=== PATIENT | female | born 1955 | race African-American/Black ===

== ENCOUNTER 2017-01-08 09:54 | Inpatient (IN) | payer OTHER ==
[2017-01-08] MEDS ORDERED: IPRATROPIUM/ALBUTEROL 0.5-2.5 MG/3 ML AMPUL NEB ONE (10:14)
--- NOTE | 2017-01-08 10:20 | ER Document Report ---
ED Medical Screen (RME) - General Chief Complaint: Headache Stated Complaint: HEAD PAIN Information source: Patient Notes: 61-year-old female presents with complaints of one week duration mild headache cough body aches generalized weakness shortness of breath. Patient denies any chest pain admits to nausea vomiting or fever I have greeted and performed a rapid initial assessment of this patient. A comprehensive ED assessment and evaluation of the patient, analysis of test results and completion of the medical decision making process will be conducted by additional ED providers. PHYSICAL EXAMINATION: GENERAL: Well-appearing, well-nourished and in no acute distress. HEAD: Atraumatic, normocephalic. EYES: Pupils equal round extraocular movements intact, conjunctiva are normal. ENT: Nares patent NECK: Normal range of motion LUNGS: No respiratory distress Musculoskeletal: Normal range of motion NEUROLOGICAL: Normal speech, normal gait. PSYCH: Normal mood, normal affect. SKIN: Warm, Dry, normal turgor, no rashes or lesions noted. TRAVEL OUTSIDE OF THE [place] IN LAST 30 DAYS: No - Related Data Allergies/Adverse Reactions: No Known Allergies Allergy (Verified 01/08/17 10:05) Past Medical History Renal/ Medical History: Denies: Hx Peritoneal Dialysis Physical Exam - Vital signs Vitals: Temp Pulse Resp BP Pulse Ox 98.1 F 78 20 127/80 H 94 01/08/17 10:06 01/08/17 10:06 01/08/17 10:06 01/08/17 10:06 01/08/17 10:06 Course - Vital Signs Vital signs: Temp Pulse Resp BP Pulse Ox 98.1 F 78 20 127/80 H 94 01/08/17 10:06 01/08/17 10:06 01/08/17 10:06 01/08/17 10:06 01/08/17 10:06
[2017-01-08 11:10] LABS: APPEARANCE,URINE CLEAR; BILIRUBIN,URINE NEGATIVE (NEGATIVE); GLUCOSE, URINE NEGATIVE (NEGATIVE); KETONES,URINE NEGATIVE (NEGATIVE); LEUKOCYTE ESTERASE,URINE NEGATIVE (NEGATIVE); NITRITE,URINE NEGATIVE (NEGATIVE); PROTEIN,URINE NEGATIVE (NEGATIVE); URINE SPECIFIC GRAVITY 1.006; UROBILINOGEN,URINE NEGATIVE mg/dL (<2.0)
[2017-01-08 11:13] LABS: ABSOLUTE EOSINOPHILS # (AUTO) 0.2 10^3/uL (0.0-0.6); ABSOLUTE LYMPHOCYTES (AUTO) 1.9 10^3/uL (0.5-4.7); ABSOLUTE MONOCYTES (AUTO) 0.7 10^3/uL (0.1-1.4); BASOPHILS % (AUTO) 0.4 % (0-2); EOSINOPHILS % (AUTO) 3.7 % (0-6); HEMATOCRIT 42.8 % (36.0-47.0); HEMOGLOBIN 14.6 g/dL (12.0-15.5); MEAN CORPUSCULAR HEMOGLOBIN 27.6 pg (27.0-33.4); MEAN CORPUSCULAR HGB CONC 34.1 g/dL (32.0-36.0); MEAN CORPUSCULAR VOLUME 81 fl (80-97); MONOCYTES % (AUTO) 12.5 % (3-13); RED BLOOD COUNT 5.29 10^6/uL (3.72-5.28); RED CELL DISTRIBUTION WIDTH 12.7 % (11.5-14.0); SEGMENTED NEUTROPHILS % (AUTO) 51.4 % (42-78); WHITE BLOOD COUNT 5.9 10^3/uL (4.0-10.5)
[2017-01-08 11:25] LABS: ALANINE AMINOTRANSFERASE 37 U/L (9-52); ALKALINE PHOSPHATASE 90 U/L (38-126); ASPARTATE AMINO TRANSFERASE 50 U/L (14-36); BILIRUBIN,DIRECT 0.3 mg/dL (0.0-0.4); BILIRUBIN,TOTAL 0.6 mg/dL (0.2-1.3); BLOOD UREA NITROGEN 12 mg/dL (7-20); CARBON DIOXIDE 30 mmol/L (22-30); CHLORIDE 65 mmol/L (98-107); CREATINE KINASE 887 U/L (30-135); CREATININE RESULT 0.73 mg/dL (0.52-1.25); GLUCOSE 126 mg/dL (75-110); POTASSIUM 4.5 mmol/L (3.6-5.0); TOTAL PROTEIN 8.8 g/dL (6.3-8.2)
--- NOTE | 2017-01-08 11:30 | ER Document Report ---
ED General - General Chief Complaint: Headache Stated Complaint: HEAD PAIN Notes: patient is a 61 year old female who presents to the ED today with her son complaining of headache, cough and body aches. Onset was one week ago. admits to subjective fever and chills, nausea and vomiting without abdominal pain, nonproductive cough, body aches, weakness and SOB and HAND. Denies diarrhea or constipation. home medications: something for HTN that she receives from [facility], son is not aware of name PCP: [facility] PMH: HTN PSH: denies SH: denies tobacco, etoh or IVDU NKDA TRAVEL OUTSIDE OF THE [place] IN LAST 30 DAYS: No - Related Data Allergies/Adverse Reactions: No Known Allergies Allergy (Verified 01/08/17 10:20) Past Medical History - General Information source: Patient - Social History Smoking Status: Never Smoker Family History: Reviewed & Not Pertinent Patient has suicidal ideation: No Patient has homicidal ideation: No Renal/ Medical History: Denies: Hx Peritoneal Dialysis Review of Systems - Review of Systems Constitutional: See HPI Cardiovascular: No symptoms reported Respiratory: See HPI Gastrointestinal: See HPI Neurological/Psychological: See HPI -: Yes All other systems reviewed and negative Physical Exam - Vital signs Vitals: Temp Pulse Resp BP Pulse Ox 98.1 F 78 20 127/80 H 94 01/08/17 10:06 01/08/17 10:06 01/08/17 10:06 01/08/17 10:06 01/08/17 10:06 - Notes Notes: PHYSICAL EXAM GENERAL: Alert, interacts well. HEAD: Normocephalic, atraumatic. EYES: Pupils equal, round, and reactive to light. Extraocular movements intact. ENT: Sinuses nontender. Oral mucosa moist, tongue midline. NECK: Full range of motion. Supple. Trachea midline. LUNGS: Generalized decreased air movement bilaterally, no wheezes, rales, or rhonchi. No respiratory distress. HEART: Regular rate and rhythm. No murmurs, gallops, or rubs. ABDOMEN: Soft, nondistended, nontender. No guarding, rebound, or rigidity.. Bowel sounds present in all 4 quadrants. EXTREMITIES: Moves all 4 extremities spontaneously. No edema, radial and dorsalis pedis pulses 2/4 bilaterally. No cyanosis. NEUROLOGICAL: Alert and oriented x4. Normal speech. PSYCH: Normal affect, normal mood. SKIN: Warm, dry, normal turgor. No rashes or lesions noted. Course - Re-evaluation Re-evalutation: 01/08/17 12:13 Patient is a 7-year-old female who is hemodynamically stable, no acute distress and afebrile. Chemistry reveals hyponatremia at 111.1 which is new given last Na was 144 in june. No evidence of renal insufficiency or failure. UA nl. Will admit to ICU under Dr. Arriaza, IVF initiated Per [facility] protocol and guidelines, this case was discussed with supervising physician Dr. Mason Archibald prior to admission - Vital Signs Vital signs: Temp Pulse Resp BP Pulse Ox 97.8 F 77 16 107/70 98 01/08/17 16:00 01/08/17 18:00 01/08/17 18:00 01/08/17 18:00 01/08/17 18:00 - Laboratory Result Diagrams: 01/08/17 10:30 01/08/17 10:30 Laboratory results interpreted by me: 01/08/17 01/08/17 01/08/17 10:30 10:30 10:30 RBC 5.29 H Sodium 111.1 L* Chloride 65 L Glucose 126 H AST 50 H Creatine Kinase 887 H CK-MB (CK-2) 4.84 H Total Protein 8.8 H Urine Osmolality Urine Ascorbic Acid 01/08/17 01/08/17 10:45 10:45 RBC Sodium Chloride Glucose AST Creatine Kinase CK-MB (CK-2) Total Protein Urine Osmolality 273 L Urine Ascorbic Acid 40 H - Diagnostic Test Radiology reviewed: Image reviewed, Reports reviewed - Consults Dr. Arriaza Reason for consultation: 01/08/17 18:30 hospital admission for hyponatremia Consulted provider: will see as inpatient Procedures - Additional Procedures IV insertion Additional Procedures: IV insertion - right AC Critical Care Note - Critical Care Note Total time excluding time spent on procedures (mins): 34 Comments: Critical care time for consultation to hopitalist for admission, management of hyponatremia and establishing IV access Discharge - Discharge Clinical Impression: Hyponatremia Admitting Provider: Hospitalist - Dr. Arriaza Unit Admitted: ICU
[2017-01-08 11:36] LABS: CREATINE KINASE MB 4.84 ng/mL (<4.55)
[2017-01-08 11:38] LABS: ANION GAP 16 (5-19); TROPONIN I < 0.012 ng/mL
[2017-01-08 11:39] LABS: SODIUM 111.1 mmol/L (137-145)
[2017-01-08] MEDS ORDERED: NORMAL SALINE 1000 ML 1,000 ML IV PRN (11:43)
[2017-01-08] MEDS ORDERED: ONDANSETRON HCL INJ/PF 4 MG/2 ML SDV IV PRN (12:26)
[2017-01-08] MEDS ORDERED: SODIUM CHLORIDE 3% 500 ML IV ONE (13:00)
--- NOTE | 2017-01-08 13:07 | PDOC H&P ---
History of Present Illness Admission Date/PCP: 01/08/17 12:07 [facility] Patient complains of: generalised weakness and persistent vomiting History of Present Illness: DANIEL PALMA is a 61 year old female known hypertensive treated at the [facility] who emigrated from [facility] 1 year ago She presented to the ED with vomiting for the past week without abdominal pain She was diagnosed of severe hyponatremia with a serum Na of 111 She was subsequently admitted to the ICU under Hospitalist Service for further evaluation and care Past Medical History Cardiac Medical History: Reports: Hypertension Social History Information Source: Relative - son Lives with: Family Smoking Status: Never Smoker Frequency of Alcohol Use: None Hx Recreational Drug Use: No - Advance Directive Resuscitation Status: Full Code Surrogate healthcare decision maker:: eun Weaver Family History Family History: Reviewed & Not Pertinent Parental Family History Reviewed: Yes Children Family History Reviewed: Yes Sibling(s) Family History Reviewed.: Yes Medication/Allergy Allergies/Adverse Reactions: No Known Allergies Allergy (Verified 01/08/17 10:20) Review of Systems Constitutional: ABSENT: chills, fever(s), headache(s), weight gain, weight loss Eyes: ABSENT: visual disturbances Ears: ABSENT: hearing changes Cardiovascular: ABSENT: chest pain, dyspnea on exertion, edema, orthropnea, palpitations Respiratory: ABSENT: cough, hemoptysis Gastrointestinal: PRESENT: as per HPI, nausea, vomiting. ABSENT: abdominal pain , constipation, diarrhea, hematemesis, hematochezia Genitourinary: ABSENT: dysuria, hematuria Musculoskeletal: ABSENT: joint swelling Integumentary: ABSENT: rash, wounds Neurological: ABSENT: abnormal gait, abnormal speech, confusion, dizziness, focal weakness, syncope Psychiatric: ABSENT: anxiety, depression, homidical ideation, suicidal ideation Endocrine: ABSENT: cold intolerance, heat intolerance, polydipsia, polyuria Hematologic/Lymphatic: ABSENT: easy bleeding, easy bruising Physical Exam Vital Signs: Temp Pulse Resp BP Pulse Ox 98.1 F 78 20 127/80 H 94 01/08/17 10:06 01/08/17 10:06 01/08/17 10:06 01/08/17 10:06 01/08/17 10:06 General appearance: PRESENT: no acute distress, well-developed, well-nourished Head exam: PRESENT: atraumatic, normocephalic Eye exam: PRESENT: conjunctiva pink, EOMI, PERRLA. ABSENT: scleral icterus Ear exam: PRESENT: normal external ear exam Mouth exam: PRESENT: moist, tongue midline Neck exam: ABSENT: carotid bruit, JVD, lymphadenopathy, thyromegaly Respiratory exam: PRESENT: clear to auscultation christian. ABSENT: rales, rhonchi, wheezes Cardiovascular exam: PRESENT: RRR. ABSENT: diastolic murmur, rubs, systolic murmur Pulses: PRESENT: normal dorsalis pedis pul Vascular exam: PRESENT: normal capillary refill GI/Abdominal exam: PRESENT: normal bowel sounds, soft. ABSENT: distended, guarding, mass, organolmegaly, rebound, tenderness Rectal exam: PRESENT: deferred Extremities exam: PRESENT: full ROM. ABSENT: calf tenderness, clubbing, pedal edema Neurological exam: PRESENT: alert, awake, oriented to person, oriented to place , oriented to time, oriented to situation, CN II-XII grossly intact. ABSENT: motor sensory deficit Psychiatric exam: PRESENT: appropriate affect, normal mood. ABSENT: homicidal ideation, suicidal ideation Skin exam: PRESENT: dry, intact, warm. ABSENT: cyanosis, rash Results Laboratory Results: 01/08/17 10:30 01/08/17 10:30 MCV 81 fl (80-97) 01/08/17 10:30 MCH 27.6 pg (27.0-33.4) 01/08/17 10:30 MCHC 34.1 g/dL (32.0-36.0) 01/08/17 10:30 RDW 12.7 % (11.5-14.0) 01/08/17 10:30 Seg Neutrophils % 51.4 % (42-78) 01/08/17 10:30 Lymphocytes % 32.0 % (13-45) 01/08/17 10:30 Monocytes % 12.5 % (3-13) 01/08/17 10:30 Eosinophils % 3.7 % (0-6) 01/08/17 10:30 Basophils % 0.4 % (0-2) 01/08/17 10:30 Absolute Neutrophils 3.0 10^3/uL (1.7-8.2) 01/08/17 10:30 Absolute Lymphocytes 1.9 10^3/uL (0.5-4.7) 01/08/17 10:30 Absolute Monocytes 0.7 10^3/uL (0.1-1.4) 01/08/17 10:30 Absolute Eosinophils 0.2 10^3/uL (0.0-0.6) 01/08/17 10:30 Absolute Basophils 0.0 10^3/uL (0.0-0.2) 01/08/17 10:30 Chloride 65 mmol/L (98-107) L 01/08/17 10:30 Carbon Dioxide 30 mmol/L (22-30) 01/08/17 10:30 Anion Gap 16 (5-19) 01/08/17 10:30 Est GFR ( Amer) > 60 (>60) 01/08/17 10:30 Est GFR (Non-Af Amer) > 60 (>60) 01/08/17 10:30 Glucose 126 mg/dL (75-110) H 01/08/17 10:30 Calcium 10.0 mg/dL (8.4-10.2) 01/08/17 10:30 Total Bilirubin 0.6 mg/dL (0.2-1.3) 01/08/17 10:30 AST 50 U/L (14-36) H 01/08/17 10:30 ALT 37 U/L (9-52) 01/08/17 10:30 Alkaline Phosphatase 90 U/L (38-126) 01/08/17 10:30 Total Protein 8.8 g/dL (6.3-8.2) H 01/08/17 10:30 Albumin 5.0 g/dL (3.5-5.0) 01/08/17 10:30 Urine Color STRAW 01/08/17 10:45 Urine Appearance CLEAR 01/08/17 10:45 Urine pH 8.0 (5.0-9.0) 01/08/17 10:45 Ur Specific [place] 1.006 01/08/17 10:45 Urine Protein NEGATIVE mg/dL (NEGATIVE) 01/08/17 10:45 Urine Glucose (UA) NEGATIVE mg/dL (NEGATIVE) 01/08/17 10:45 Urine Ketones NEGATIVE mg/dL (NEGATIVE) 01/08/17 10:45 Urine Blood NEGATIVE (NEGATIVE) 01/08/17 10:45 Urine Nitrite NEGATIVE (NEGATIVE) 01/08/17 10:45 Ur Leukocyte Esterase NEGATIVE (NEGATIVE) 01/08/17 10:45 Urine WBC (Auto) 0 /HPF 01/08/17 10:45 01/08/17 01/08/17 10:30 10:30 Creatine Kinase 887 H CK-MB (CK-2) 4.84 H Troponin I < 0.012 Impressions: Chest X-Ray 01/08/17 10:14 IMPRESSION: NO SIGNIFICANT RADIOGRAPHIC FINDING IN THE CHEST. Head CT 01/08/17 10:19 IMPRESSION: 1. Left maxillary sinusitis. Acute infection not excluded. 2. Suspect small vessel disease, chronic change otherwise. Assessment & Plan - Diagnosis (1) Rhabdomyolysis Qualifiers: Rhabdomyolysis type: non-traumatic Qualified Code(s): M62.82 - Rhabdomyolysis Is this a current diagnosis for this admission?: YesPlan: follow up CPK hydrate Patient has normal renal function (2) Hypertension Qualifiers: Hypertension type: essential hypertension Qualified Code(s): I10 - Essential (primary) hypertension Is this a current diagnosis for this admission?: YesPlan: hold meds for now (3) Hyponatremia Is this a current diagnosis for this admission?: YesPlan: very low Na 111 increase Na no more than 8mEq/24 hours seizure precautions Patient is asymptomatic likely acute on chronic treat with 0.9 NS and fluid restriction follow up q4h - Time Time Spent: 50 to 70 Minutes - Inpatient Certification Based on my medical assessment, after consideration of the patient's comorbidities, presenting symptoms, or acuity I expect that the services needed warrant INPATIENT care.: Yes I certify that my determination is in accordance with my understanding of Medicare's requirements for reasonable and necessary INPATIENT services [42 CFR 412.3e].: Yes Medical Necessity: Need For IV Fluids, Need For Continuous Telemetry Monitoring
[2017-01-08] MEDS ORDERED: ENOXAPARIN SODIUM INJ 40 MG/0.4 ML DISP.SYRIN SUBCUT ONE (13:30)
[2017-01-08] MEDS: NORMAL SALINE 1000 ML 1,000 ML IV PRN ×2 (13:59→21:43)
[2017-01-08 18:04] LABS: THYROID STIMULATING HORMONE 0.31 uIU/mL (0.47-4.68)
[2017-01-08 18:38] LABS: ALANINE AMINOTRANSFERASE 33 U/L (9-52); ALBUMIN 4.4 g/dL (3.5-5.0); ALKALINE PHOSPHATASE 76 U/L (38-126); ANION GAP 13 (5-19); ASPARTATE AMINO TRANSFERASE 43 U/L (14-36); BILIRUBIN,DIRECT 0.3 mg/dL (0.0-0.4); BILIRUBIN,TOTAL 0.5 mg/dL (0.2-1.3); BLOOD UREA NITROGEN 15 mg/dL (7-20); CALCIUM 9.9 mg/dL (8.4-10.2); CARBON DIOXIDE 28 mmol/L (22-30); CHLORIDE 74 mmol/L (98-107); GLUCOSE 139 mg/dL (75-110); POTASSIUM 4.4 mmol/L (3.6-5.0); TOTAL PROTEIN 7.4 g/dL (6.3-8.2)
[2017-01-08 18:44] LABS: SODIUM 114.8 mmol/L (137-145)
[2017-01-08] MEDS ORDERED: FENTANYL CITRATE INJ/PF 100 MCG/2 ML AMPUL ONE (19:03)
[2017-01-08] MEDS ORDERED: MIDAZOLAM 2 MG/2 ML INJ ONE (19:03)
[2017-01-08] MEDS ORDERED: MIDAZOLAM 2 MG/2 ML INJ IV ONE (19:15)
[2017-01-08] MEDS ORDERED: FENTANYL CITRATE INJ/PF 100 MCG/2 ML AMPUL IV ONE ×2 (19:15→19:30)
[2017-01-08] MEDS ORDERED: LIDOCAINE 0.5% INJ-PF (5 MG/ML) 50 ML SDV ONE (19:36)
[2017-01-08] MEDS ORDERED: LIDOCAINE 1% INJ-PF (10 MG/ML) 30 ML SDV ONE (19:37)
--- NOTE | 2017-01-08 21:03 | OPERATIVE REPORT E ---
Operative Report NAME: DANIEL PALMA : 1955 AGE: 61Y DATE OF SURGERY: 01/08/2017 ROOM: [facility] PREOPERATIVE DIAGNOSIS: Poor vein for IV access and severe hyponatremia. POSTOPERATIVE DIAGNOSIS: Poor vein for IV access and severe hyponatremia. OPERATION: Placement of central venous triple-lumen catheter. SURGEON: ELBA BROWN M.D. ANESTHESIA: Local MAC. INDICATION: This is a 61-year-old female admitted for severe hyponatremia with a sodium of about 110. She needed IV access because of poor veins. DESCRIPTION OF PROCEDURE: Patient was placed in a slight Trendelenburg position and the right neck and chest prepped and draped in the usual sterile fashion. With the use of the ultrasound, the right internal jugular vein was then punctured, but unfortunately I was not able to thread the guidewire more than 15 cm. The wire subsequently pulled out and further ultrasound of internal jugular vein revealed that there might be some clots in the vein itself. Because of this, the procedure was converted to cannulation of right subclavian vein. Local anesthesia was then infiltrated on the right infraclavicular area and the right subclavian vein punctured and guidewire this time passed through quite easily through the needle. The needle was subsequently pulled out and the puncture site enlarged with a #11 blade. Dilator was then passed through the guidewire and pulled out. The triple-lumen catheter was inserted through the guidewire towards the area of the superior vena cava. About 17 cm of the catheter was threaded through. The guidewire subsequently pulled out and the 3 ports and aspirated blood easily and irrigated with saline easily. Next the catheter was anchored to the skin with 3-0 silk. A Biopatch was then placed at the entry site and subsequently dressed with transparent dressing. A chest x-ray will be obtained. The patient tolerated the procedure well. DICTATING PHYSICIAN: ELBA BROWN M.D. [id number] PHY#: [id number] 2018 ID: [id number] JOB#: [id number] ACCT: [id number] cc:ELBA BROWN M.D. >
[2017-01-08] MEDS: PANTOPRAZOLE SODIUM 40 MG VIAL IV SCH (21:43)
[2017-01-08 22:25] LABS: ANION GAP 11 (5-19); BLOOD UREA NITROGEN 12 mg/dL (7-20); CALCIUM 8.8 mg/dL (8.4-10.2); CARBON DIOXIDE 31 mmol/L (22-30); CHLORIDE 76 mmol/L (98-107); CREATININE RESULT 0.68 mg/dL (0.52-1.25); GLUCOSE 89 mg/dL (75-110); POTASSIUM 3.9 mmol/L (3.6-5.0)
[2017-01-08 22:31] LABS: SODIUM 117.5 mmol/L (137-145)
[2017-01-09] MEDS: KETOROLAC TROMETHAMINE INJ/PF 30 MG/1 ML SDV IV PRN (02:24)
[2017-01-09 02:35] LABS: BLOOD UREA NITROGEN 12 mg/dL (7-20); CALCIUM 9.1 mg/dL (8.4-10.2); CARBON DIOXIDE 31 mmol/L (22-30); CHLORIDE 77 mmol/L (98-107); CREATININE RESULT 0.62 mg/dL (0.52-1.25); GLUCOSE 98 mg/dL (75-110); POTASSIUM 3.9 mmol/L (3.6-5.0)
[2017-01-09 02:37] LABS: ANION GAP 11 (5-19)
[2017-01-09 02:41] LABS: SODIUM 119.3 mmol/L (137-145)
[2017-01-09 06:14] LABS: ABSOLUTE BASOPHILS # (AUTO) 0.1 10^3/uL (0.0-0.2); ABSOLUTE EOSINOPHILS # (AUTO) 0.1 10^3/uL (0.0-0.6); ABSOLUTE LYMPHOCYTES (AUTO) 1.8 10^3/uL (0.5-4.7); ABSOLUTE NEUT (AUTO) 4.1 10^3/uL (1.7-8.2); BASOPHILS % (AUTO) 0.7 % (0-2); HEMATOCRIT 36.8 % (36.0-47.0); HEMOGLOBIN 12.7 g/dL (12.0-15.5); HGB HCT DIFFERENCE 1.3; MEAN CORPUSCULAR HEMOGLOBIN 28.1 pg (27.0-33.4); MEAN CORPUSCULAR HGB CONC 34.6 g/dL (32.0-36.0); MEAN CORPUSCULAR VOLUME 81 fl (80-97); MONOCYTES % (AUTO) 13.8 % (3-13); RED BLOOD COUNT 4.53 10^6/uL (3.72-5.28); RED CELL DISTRIBUTION WIDTH 12.7 % (11.5-14.0); SEGMENTED NEUTROPHILS % (AUTO) 57.5 % (42-78); WHITE BLOOD COUNT 7.1 10^3/uL (4.0-10.5)
[2017-01-09] MEDS: NORMAL SALINE 1000 ML 1,000 ML IV PRN (06:29)
[2017-01-09 06:31] LABS: ALANINE AMINOTRANSFERASE 35 U/L (9-52); ALBUMIN 3.8 g/dL (3.5-5.0); ALKALINE PHOSPHATASE 69 U/L (38-126); ANION GAP 10 (5-19); ASPARTATE AMINO TRANSFERASE 32 U/L (14-36); BILIRUBIN,DIRECT 0.2 mg/dL (0.0-0.4); BILIRUBIN,TOTAL 0.5 mg/dL (0.2-1.3); BLOOD UREA NITROGEN 11 mg/dL (7-20); CALCIUM 8.9 mg/dL (8.4-10.2); CARBON DIOXIDE 31 mmol/L (22-30); CHLORIDE 81 mmol/L (98-107); CHOLESTEROL 150.13 mg/dL (0-200); CREATINE KINASE 514 U/L (30-135); CREATININE RESULT 0.68 mg/dL (0.52-1.25); Direct HDL 60 mg/dL (>40); GLUCOSE 91 mg/dL (75-110); POTASSIUM 3.9 mmol/L (3.6-5.0); TOTAL PROTEIN 6.5 g/dL (6.3-8.2); TRIGLYCERIDES 55 mg/dL (<150)
[2017-01-09 06:42] LABS: DIRECT LDL 63 mg/dL (<100)
[2017-01-09] MEDS: ENOXAPARIN SODIUM INJ 40 MG/0.4 ML DISP.SYRIN SUBCUT SCH (08:28)
[2017-01-09] MEDS ORDERED: FUROSEMIDE INJ/PF 20 MG/2 ML SDV IV ONE (08:30)
--- NOTE | 2017-01-09 10:05 | EKG REPORT ---
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
[2017-01-09] MEDS: PANTOPRAZOLE SODIUM 40 MG VIAL IV SCH ×2 (11:48→21:49)
[2017-01-09 12:42] LABS: ANION GAP 11 (5-19); BLOOD UREA NITROGEN 14 mg/dL (7-20); CALCIUM 9.3 mg/dL (8.4-10.2); CARBON DIOXIDE 30 mmol/L (22-30); CHLORIDE 82 mmol/L (98-107); CREATININE RESULT 0.68 mg/dL (0.52-1.25); GLUCOSE 152 mg/dL (75-110); POTASSIUM 3.6 mmol/L (3.6-5.0); SODIUM 123.2 mmol/L (137-145)
--- NOTE | 2017-01-09 15:44 | PDOC PROGRESS REPORT ---
Subjective Progress Note for:: 01/09/17 Subjective:: Patient is feeling well she has no complaints Sodium is normalizing Physical Exam Vital Signs: Temp Pulse Resp BP Pulse Ox 98.1 F 76 17 114/71 100 01/09/17 08:30 01/09/17 08:30 01/09/17 08:30 01/09/17 08:30 01/09/17 08:30 Intake & Output 01/08/17 01/09/17 01/10/17 00:59 00:59 00:59 Intake Total 707 1892 Output Total 2600 1950 Balance -1893 -58 Weight 83.4 kg General appearance: PRESENT: no acute distress, well-developed, well-nourished Head exam: PRESENT: atraumatic, normocephalic Eye exam: PRESENT: conjunctiva pink, EOMI, PERRLA. ABSENT: scleral icterus Ear exam: PRESENT: normal external ear exam Mouth exam: PRESENT: moist, tongue midline Neck exam: ABSENT: carotid bruit, JVD, lymphadenopathy, thyromegaly Respiratory exam: PRESENT: clear to auscultation christian. ABSENT: rales, rhonchi, wheezes Cardiovascular exam: PRESENT: RRR. ABSENT: diastolic murmur, rubs, systolic murmur Pulses: PRESENT: normal dorsalis pedis pul Vascular exam: PRESENT: normal capillary refill GI/Abdominal exam: PRESENT: normal bowel sounds, soft. ABSENT: distended, guarding, mass, organolmegaly, rebound, tenderness Rectal exam: PRESENT: deferred Extremities exam: PRESENT: full ROM. ABSENT: calf tenderness, clubbing, pedal edema Neurological exam: PRESENT: alert, awake, oriented to person, oriented to place , oriented to time, oriented to situation, CN II-XII grossly intact. ABSENT: motor sensory deficit Psychiatric exam: PRESENT: appropriate affect, normal mood. ABSENT: homicidal ideation, suicidal ideation Skin exam: PRESENT: dry, intact, warm. ABSENT: cyanosis, rash Results Laboratory Results: 01/09/17 06:00 01/08/17 01/08/17 01/08/17 17:00 17:00 18:10 WBC RBC Hgb Hct MCV MCH MCHC RDW Plt Count Seg Neutrophils % Lymphocytes % Monocytes % Eosinophils % Basophils % Absolute Neutrophils Absolute Lymphocytes Absolute Monocytes Absolute Eosinophils Absolute Basophils Sodium 114.8 L* Potassium 4.4 Chloride 74 L Carbon Dioxide 28 Anion Gap 13 BUN 15 Creatinine 0.70 Est GFR ( Amer) > 60 Est GFR (Non-Af Amer) > 60 Glucose 139 H Serum Osmolality 237 L Calcium 9.9 Total Bilirubin 0.5 AST 43 H ALT 33 Alkaline Phosphatase 76 Total Protein 7.4 Albumin 4.4 Triglycerides Cholesterol LDL Cholesterol Direct VLDL Cholesterol HDL Cholesterol TSH 0.31 L Free T4 1.65 01/08/17 01/09/17 01/09/17 21:52 02:00 06:00 WBC RBC Hgb Hct MCV MCH MCHC RDW Plt Count Seg Neutrophils % Lymphocytes % Monocytes % Eosinophils % Basophils % Absolute Neutrophils Absolute Lymphocytes Absolute Monocytes Absolute Eosinophils Absolute Basophils Sodium 117.5 L* 119.3 L* 122.0 L Potassium 3.9 3.9 3.9 Chloride 76 L 77 L 81 L Carbon Dioxide 31 H 31 H 31 H Anion Gap 11 11 10 BUN 12 12 11 Creatinine 0.68 0.62 0.68 Est GFR ( Amer) > 60 > 60 > 60 Est GFR (Non-Af Amer) > 60 > 60 > 60 Glucose 89 98 91 Serum Osmolality Calcium 8.8 9.1 8.9 Total Bilirubin 0.5 AST 32 ALT 35 Alkaline Phosphatase 69 Total Protein 6.5 Albumin 3.8 Triglycerides 55 Cholesterol 150.13 LDL Cholesterol Direct 63 VLDL Cholesterol 11.0 HDL Cholesterol 60 TSH Free T4 01/09/17 01/09/17 06:00 11:45 WBC 7.1 RBC 4.53 Hgb 12.7 Hct 36.8 MCV 81 MCH 28.1 MCHC 34.6 RDW 12.7 Plt Count 259 Seg Neutrophils % 57.5 Lymphocytes % 26.0 Monocytes % 13.8 H Eosinophils % 2.0 Basophils % 0.7 Absolute Neutrophils 4.1 Absolute Lymphocytes 1.8 Absolute Monocytes 1.0 Absolute Eosinophils 0.1 Absolute Basophils 0.1 Sodium 123.2 L Potassium 3.6 Chloride 82 L Carbon Dioxide 30 Anion Gap 11 BUN 14 Creatinine 0.68 Est GFR ( Amer) > 60 Est GFR (Non-Af Amer) > 60 Glucose 152 H Serum Osmolality Calcium 9.3 Total Bilirubin AST ALT Alkaline Phosphatase Total Protein Albumin Triglycerides Cholesterol LDL Cholesterol Direct VLDL Cholesterol HDL Cholesterol TSH Free T4 01/09/17 01/09/17 06:00 09:57 Creatine Kinase 514 H NT-Pro-B Natriuret Pep 37 Impressions: Chest X-Ray 01/08/17 10:14 IMPRESSION: NO SIGNIFICANT RADIOGRAPHIC FINDING IN THE CHEST. Head CT 01/08/17 10:19 IMPRESSION: 1. Left maxillary sinusitis. Acute infection not excluded. 2. Suspect small vessel disease, chronic change otherwise. Assessment & Plan - Diagnosis (1) Rhabdomyolysis Qualifiers: Rhabdomyolysis type: non-traumatic Qualified Code(s): M62.82 - Rhabdomyolysis Is this a current diagnosis for this admission?: Yes (2) Hypertension Qualifiers: Hypertension type: essential hypertension Qualified Code(s): I10 - Essential (primary) hypertension Is this a current diagnosis for this admission?: Yes (3) Hyponatremia Is this a current diagnosis for this admission?: YesPlan: Improving continue fluid restriction continue saline infusion - Time Time Spent with patient: We may transfer patient to medical unit with telemetry Follow-up BMP patient may be discharged later tomorrow Time Spent with patient: 25-34 minutes
[2017-01-09 15:48] LABS: ANION GAP 12 (5-19); BLOOD UREA NITROGEN 19 mg/dL (7-20); CALCIUM 9.1 mg/dL (8.4-10.2); CARBON DIOXIDE 29 mmol/L (22-30); CHLORIDE 82 mmol/L (98-107); CREATININE RESULT 0.88 mg/dL (0.52-1.25); GLUCOSE 158 mg/dL (75-110); SODIUM 122.9 mmol/L (137-145)
[2017-01-09 18:59] LABS: ANION GAP 12 (5-19); BLOOD UREA NITROGEN 23 mg/dL (7-20); CALCIUM 9.3 mg/dL (8.4-10.2); CARBON DIOXIDE 31 mmol/L (22-30); CHLORIDE 81 mmol/L (98-107); GLUCOSE 116 mg/dL (75-110); POTASSIUM 4.1 mmol/L (3.6-5.0); SODIUM 123.6 mmol/L (137-145)
[2017-01-09 22:18] LABS: ANION GAP 11 (5-19); BLOOD UREA NITROGEN 24 mg/dL (7-20); CALCIUM 8.9 mg/dL (8.4-10.2); CARBON DIOXIDE 30 mmol/L (22-30); CHLORIDE 82 mmol/L (98-107); CREATININE RESULT 0.97 mg/dL (0.52-1.25); GLUCOSE 117 mg/dL (75-110); POTASSIUM 3.8 mmol/L (3.6-5.0); SODIUM 123.2 mmol/L (137-145)
[2017-01-10] MEDS: KETOROLAC TROMETHAMINE INJ/PF 30 MG/1 ML SDV IV PRN ×2 (03:06→09:21)
[2017-01-10 04:03] LABS: ANION GAP 13 (5-19); BLOOD UREA NITROGEN 21 mg/dL (7-20); CALCIUM 9.2 mg/dL (8.4-10.2); CARBON DIOXIDE 31 mmol/L (22-30); CHLORIDE 82 mmol/L (98-107); CREATININE RESULT 0.72 mg/dL (0.52-1.25); GLUCOSE 134 mg/dL (75-110); POTASSIUM 3.7 mmol/L (3.6-5.0); SODIUM 125.6 mmol/L (137-145)
[2017-01-10] MEDS ORDERED: LORAZEPAM INJ 2 MG/1 ML VIAL ONE (05:57)
[2017-01-10] MEDS ORDERED: LORAZEPAM INJ 2 MG/1 ML VIAL IV ONE (06:15)
--- NOTE | 2017-01-10 08:05 | EKG REPORT ---
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 : Confirmed by: Dylan Iraheta MD 10-Jan-2017 08:05:17
[2017-01-10] MEDS: ENOXAPARIN SODIUM INJ 40 MG/0.4 ML DISP.SYRIN SUBCUT SCH (09:22)
[2017-01-10] MEDS: PANTOPRAZOLE SODIUM 40 MG VIAL IV SCH ×2 (09:22→21:11)
[2017-01-10 15:20] LABS: ANION GAP 11 (5-19); BLOOD UREA NITROGEN 19 mg/dL (7-20); CALCIUM 8.9 mg/dL (8.4-10.2); CARBON DIOXIDE 31 mmol/L (22-30); CHLORIDE 83 mmol/L (98-107); CREATININE RESULT 0.58 mg/dL (0.52-1.25); GLUCOSE 162 mg/dL (75-110); POTASSIUM 3.9 mmol/L (3.6-5.0); SODIUM 125.1 mmol/L (137-145)
[2017-01-10] MEDS ORDERED: NORMAL SALINE 1000 ML 1,000 ML IV PRN ×2 (15:39→15:53)
--- NOTE | 2017-01-10 17:17 | PDOC PROGRESS REPORT ---
Subjective Progress Note for:: 01/10/17 Subjective:: Patient is asymptomatic now She was quite agitated last night and wishes to go home She has had no seizure activity nausea vomiting diarrhea The by mouth intake is good Physical Exam Vital Signs: Temp Pulse Resp BP Pulse Ox 97.9 F 96 16 155/83 H 100 01/10/17 10:00 01/10/17 10:00 01/10/17 10:00 01/10/17 10:00 01/10/17 10:00 Intake & Output 01/09/17 01/10/17 01/11/17 00:59 00:59 00:59 Intake Total 707 1892 0 Output Total 2600 2350 500 Balance -1893 -458 -500 Weight 83.4 kg General appearance: PRESENT: no acute distress, well-developed, well-nourished Head exam: PRESENT: atraumatic, normocephalic Eye exam: PRESENT: conjunctiva pink, EOMI, PERRLA. ABSENT: scleral icterus Ear exam: PRESENT: normal external ear exam Mouth exam: PRESENT: moist, tongue midline Neck exam: ABSENT: carotid bruit, JVD, lymphadenopathy, thyromegaly Respiratory exam: PRESENT: clear to auscultation christian. ABSENT: rales, rhonchi, wheezes Cardiovascular exam: PRESENT: RRR. ABSENT: diastolic murmur, rubs, systolic murmur Pulses: PRESENT: normal dorsalis pedis pul Vascular exam: PRESENT: normal capillary refill GI/Abdominal exam: PRESENT: normal bowel sounds, soft. ABSENT: distended, guarding, mass, organolmegaly, rebound, tenderness Rectal exam: PRESENT: deferred Extremities exam: PRESENT: full ROM. ABSENT: calf tenderness, clubbing, pedal edema Neurological exam: PRESENT: alert, awake, oriented to person, oriented to place , oriented to time, oriented to situation, CN II-XII grossly intact. ABSENT: motor sensory deficit Psychiatric exam: PRESENT: appropriate affect, normal mood. ABSENT: homicidal ideation, suicidal ideation Skin exam: PRESENT: dry, intact, warm. ABSENT: cyanosis, rash Results Laboratory Results: 01/09/17 06:00 01/10/17 14:18 01/09/17 01/09/17 01/10/17 18:20 21:50 03:00 Sodium 123.6 L 123.2 L 125.6 L Potassium 4.1 3.8 3.7 Chloride 81 L 82 L 82 L Carbon Dioxide 31 H 30 31 H Anion Gap 12 11 13 BUN 23 H 24 H 21 H Creatinine 0.80 0.97 0.72 Est GFR ( Amer) > 60 > 60 > 60 Est GFR (Non-Af Amer) > 60 59 L > 60 Glucose 116 H 117 H 134 H Calcium 9.3 8.9 9.2 01/10/17 14:18 Sodium 125.1 L Potassium 3.9 Chloride 83 L Carbon Dioxide 31 H Anion Gap 11 BUN 19 Creatinine 0.58 Est GFR ( Amer) > 60 Est GFR (Non-Af Amer) > 60 Glucose 162 H Calcium 8.9 01/09/17 01/09/17 06:00 09:57 Creatine Kinase 514 H NT-Pro-B Natriuret Pep 37 Impressions: Chest X-Ray 01/08/17 10:14 IMPRESSION: NO SIGNIFICANT RADIOGRAPHIC FINDING IN THE CHEST. Head CT 01/08/17 10:19 IMPRESSION: 1. Left maxillary sinusitis. Acute infection not excluded. 2. Suspect small vessel disease, chronic change otherwise. Assessment & Plan - Diagnosis (1) Rhabdomyolysis Qualifiers: Rhabdomyolysis type: non-traumatic Qualified Code(s): M62.82 - Rhabdomyolysis Is this a current diagnosis for this admission?: YesPlan: Is improving with CPKs in the downward trend (2) Hypertension Qualifiers: Hypertension type: essential hypertension Qualified Code(s): I10 - Essential (primary) hypertension Is this a current diagnosis for this admission?: YesPlan: Controlled (3) Hyponatremia Is this a current diagnosis for this admission?: YesPlan: Is improving We will continue fluid restriction and saline administration Repeat sodium in a.m. Patient may be discharged when sodium is around 130 (4) Hyperglycemia Is this a current diagnosis for this admission?: YesPlan: We will obtain a hemoglobin A1c and lipid profile in a.m. - Time Time Spent with patient: 25-34 minutes
--- NOTE | 2017-01-10 19:22 | XCELERA REPORT ---
[address] [address] Transthoracic Echocardiogram Report Name: DANIEL PALMA Age: 61 yrs Gender: Female : 1955 Patient Status: Inpatient Patient Location: ICU\S\610\S\A Study Date: 01/10/2017 08:47 AM Height: 64 in Weight: 183 lb BSA: 1.9 m2 Procedure: A complete two-dimensional transthoracic echocardiogram was performed (2D, M-mode, spectral and color flow Doppler). The study was technically difficult with many images being suboptimal in quality. Reason For Study: abnormal EKG Ordering Physician: ALIA BURNHAM Performed By: Lydia Bernard Interpretation Summary The left ventricular ejection fraction is normal. Doppler measurements suggest pseudonormalized left ventricular relaxation, which is associated with grade II/IV or mild to moderate diastolic dysfunction There is borderline concentric left ventricular hypertrophy. The left ventricle is grossly normal size. Wall motion cannot be accurately commented on, but no definite regional wall motion abnormalities noted. The right ventricle is borderline dilated. The right ventricular systolic function is normal. The right atrium is normal in size The left atrial size is normal. There is no mitral valve stenosis. There is a trace amount of mitral regurgitation There is no aortic valve stenosis There is a trace to mild amount of aortic regurgitation There is a mild amount of tricuspid regurgitation There is mild pulmonary hypertension by echo Right ventricular systolic pressure is estimated to be elevated at 30- 40mmHg. There is no pericardial effusion. MMode/2D Measurements \T\ Calculations RVDd: 2.9 cm LVIDd: 3.6 cm FS: 38.8 % Ao root diam: 2.4 cm IVSd: 0.89 cm LVIDs: 2.2 cm EDV(Teich): 54.2 ml LVPWd: 0.93 cm ESV(Teich): 16.2 ml Ao root area: 4.5 cm2 EF(Teich): 70.1 % LA dimension: 2.9 cm Doppler Measurements \T\ Calculations MV E max anali: MV P1/2t max anali: Ao V2 max: AI max anali: 67.6 cm/sec 68.6 cm/sec 138.8 cm/sec 446.6 cm/sec MV A max anali: MV P1/2t: 56.5 msec Ao max PG: AI max P.7 cm/sec 7.7 mmHg 79.8 mmHg MV E/A: 0.65 MVA(P1/2t): 3.9 cm2 AI dec slope: MV dec slope: 355.6 cm/sec2 278.9 cm/sec2 MV dec time: AI P1/2t: 0.19 sec 469.0 msec LV V1 max PG: PA V2 max: TR max anali: 6.0 mmHg 96.3 cm/sec 293.2 cm/sec LV V1 max: PA max P.7 mmHg TR max P.9 cm/sec 34.4 mmHg Left Ventricle The left ventricle is grossly normal size. There is borderline concentric left ventricular hypertrophy. The left ventricular ejection fraction is normal. Doppler measurements suggest pseudonormalized left ventricular relaxation, which is associated with grade II/IV or mild to moderate diastolic dysfunction. Wall motion cannot be accurately commented on, but no definite regional wall motion abnormalities noted. Right Ventricle The right ventricle is borderline dilated. There is normal right ventricular wall thickness. The right ventricular systolic function is normal. Atria The right atrium is normal in size. The left atrial size is normal. Interarterial septum not well visualized and not well dopplered. Cannot comment on ASD/PFO presence. Mitral Valve The mitral valve leaflets are sclerotic, but show no functional abnormalities. There is no mitral valve stenosis. There is a trace amount of mitral regurgitation. Aortic Valve The aortic valve is grossly normal. There is no aortic valve stenosis. There is a trace to mild amount of aortic regurgitation. Tricuspid Valve The tricuspid valve is not well visualized, but is grossly normal. There is no tricuspid stenosis. There is a mild amount of tricuspid regurgitation. There is mild pulmonary hypertension by echo. Right ventricular systolic pressure is estimated to be elevated at 30-40mmHg. Pulmonic Valve The pulmonic valve is not well visualized. Great Vessels The aortic root is not well visualized. The inferior vena cava appeared normal and decreased > 50% with respiration (RAP 5-10 mmHg). Effusions There is no pericardial effusion. : ALIA BURNHAM > Analy Tavera
[2017-01-11] MEDS: KETOROLAC TROMETHAMINE INJ/PF 30 MG/1 ML SDV IV PRN (00:11)
[2017-01-11 05:45] LABS: ANION GAP 10 (5-19); BLOOD UREA NITROGEN 13 mg/dL (7-20); CALCIUM 8.2 mg/dL (8.4-10.2); CARBON DIOXIDE 30 mmol/L (22-30); CHLORIDE 88 mmol/L (98-107); CREATININE RESULT 0.47 mg/dL (0.52-1.25); GLUCOSE 100 mg/dL (75-110); POTASSIUM 3.6 mmol/L (3.6-5.0); SODIUM 128.4 mmol/L (137-145)
[2017-01-11] MEDS: ENOXAPARIN SODIUM INJ 40 MG/0.4 ML DISP.SYRIN SUBCUT SCH (07:52)
[2017-01-11] MEDS: PANTOPRAZOLE SODIUM 40 MG VIAL IV SCH (09:46)
--- NOTE | 2017-01-11 16:06 | PDOC PROGRESS REPORT ---
Subjective Progress Note for:: 01/11/17 Subjective:: Patient is slightly less confused today. She still makes occasional bizarre statements. She is now speaking Kenyan and answering some questions. She denies pain, shortness of breath, fever, headache, nausea, vomiting. Physical Exam Vital Signs: Temp Pulse Resp BP Pulse Ox 98.1 F 95 20 150/85 H 100 01/11/17 12:18 01/11/17 12:18 01/11/17 12:18 01/11/17 12:18 01/11/17 12:18 Intake & Output 01/10/17 01/11/17 01/12/17 06:59 06:59 06:59 Intake Total 0 771 Output Total 1650 750 Balance -1650 21 Weight 82.3 kg GENERAL: No acute distress HEENT: Conjunctiva clear, nonicteric, moist mucous membranes, no JVD, midline trachea RESPIRATORY: Clear to auscultation bilaterally, no wheezes, no rhonchi CARDIAC: Regular rate and rhythm, no murmurs/gallops/rubs ABDOMEN: Soft, nondistended, nontender, positive bowel sounds, no rebound, no guarding EXTREMETIES: No edema, cyanosis, clubbing NEUROLOGIC: Alert, oriented to person only, CN's grossly intact, no focal deficits SKIN: No rash, wounds Results Laboratory Results: 01/09/17 06:00 01/11/17 04:30 01/11/17 04:30 Sodium 128.4 L Potassium 3.6 Chloride 88 L Carbon Dioxide 30 Anion Gap 10 BUN 13 Creatinine 0.47 L Est GFR ( Amer) > 60 Est GFR (Non-Af Amer) > 60 Glucose 100 Calcium 8.2 L 01/09/17 01/09/17 06:00 09:57 Creatine Kinase 514 H NT-Pro-B Natriuret Pep 37 Impressions: Head CT 01/08/17 10:19 IMPRESSION: 1. Left maxillary sinusitis. Acute infection not excluded. 2. Suspect small vessel disease, chronic change otherwise. Chest X-Ray 01/11/17 09:38 IMPRESSION: NO ACUTE RADIOGRAPHIC FINDING IN THE CHEST. Assessment & Plan - Diagnosis (1) Encephalopathy Is this a current diagnosis for this admission?: YesPlan: Secondary to profound hyponatremia. Continue supportive care. Improving. (2) Hyponatremia Is this a current diagnosis for this admission?: YesPlan: Symptomatic. Secondary to hydrochlorothiazide. Correcting gradually. (3) Left ventricular diastolic dysfunction Is this a current diagnosis for this admission?: YesPlan: Clinically compensated. Chest x-ray negative. Start Coreg 12.5 mg twice daily. (4) Hypertension Qualifiers: Hypertension type: essential hypertension Qualified Code(s): I10 - Essential (primary) hypertension Is this a current diagnosis for this admission?: YesPlan: Discontinue previous medications. Start Coreg 12.5 mg twice daily for this as well as diastolic dysfunction. HCTZ discontinued and noted as adverse drug reaction secondary to profound hyponatremia. (5) Rhabdomyolysis Qualifiers: Rhabdomyolysis type: non-traumatic Qualified Code(s): M62.82 - Rhabdomyolysis Is this a current diagnosis for this admission?: Yes (6) Constipation Is this a current diagnosis for this admission?: YesPlan: Give one-time dose of milk of magnesia. - Time Time Spent with patient: 35 or more minutes
[2017-01-11] MEDS ORDERED: MAGNESIUM HYDROXIDE SUSP 30 ML UDCUP PO ONE (16:30)
[2017-01-11] MEDS ORDERED: METOPROLOL TARTRATE 25 MG TABLET PO SCH (22:00)
[2017-01-11] MEDS: CARVEDILOL 12.5 MG TABLET PO SCH (22:01)
[2017-01-12] MEDS ORDERED: DEXTROSE 50%-WATER 25 GM/50 ML DISP.SYRIN IV PRN ×2 (02:13)
[2017-01-12] MEDS ORDERED: DEXTROSE 40% GEL 15 GM TUBE PO PRN ×2 (02:13)
[2017-01-12] MEDS ORDERED: GLUCAGON,HUMAN RECOMB 1 MG INJ SUBCUT PRN (02:13)
[2017-01-12 05:04] LABS: ABSOLUTE BASOPHILS # (AUTO) 0.1 10^3/uL (0.0-0.2); ABSOLUTE EOSINOPHILS # (AUTO) 0.2 10^3/uL (0.0-0.6); ABSOLUTE LYMPHOCYTES (AUTO) 2.2 10^3/uL (0.5-4.7); ABSOLUTE NEUT (AUTO) 6.9 10^3/uL (1.7-8.2); BASOPHILS % (AUTO) 0.5 % (0-2); EOSINOPHILS % (AUTO) 2.3 % (0-6); HEMATOCRIT 32.1 % (36.0-47.0); HGB HCT DIFFERENCE 0.9; LYMPHOCYTES % (AUTO) 21.1 % (13-45); MEAN CORPUSCULAR HEMOGLOBIN 28.3 pg (27.0-33.4); MEAN CORPUSCULAR HGB CONC 34.3 g/dL (32.0-36.0); MEAN CORPUSCULAR VOLUME 83 fl (80-97); MONOCYTES % (AUTO) 9.6 % (3-13); RED BLOOD COUNT 3.88 10^6/uL (3.72-5.28); RED CELL DISTRIBUTION WIDTH 13.3 % (11.5-14.0); SEGMENTED NEUTROPHILS % (AUTO) 66.5 % (42-78); WHITE BLOOD COUNT 10.4 10^3/uL (4.0-10.5)
[2017-01-12 05:21] LABS: ANION GAP 9 (5-19); BLOOD UREA NITROGEN 13 mg/dL (7-20); CALCIUM 8.9 mg/dL (8.4-10.2); CARBON DIOXIDE 31 mmol/L (22-30); CHLORIDE 89 mmol/L (98-107); CREATININE RESULT 0.65 mg/dL (0.52-1.25); GLUCOSE 112 mg/dL (75-110); POTASSIUM 4.5 mmol/L (3.6-5.0)
[2017-01-12] MEDS ORDERED: CEFTRIAXONE 1 GM/D5W RTU 50 ML IV SCH (08:00)
[2017-01-12] MEDS: ENOXAPARIN SODIUM INJ 40 MG/0.4 ML DISP.SYRIN SUBCUT SCH (08:12)
--- NOTE | 2017-01-12 10:11 | Progress Note ---
Provider Note Provider Note: 01/11/2017: I was contacted by patient's floor nurse late evening concerning patient complaints of pain and swelling on the right side of her neck, with visible swelling, according to the nursing staff, which had become somewhat more prominent when compared to start of shift at 7 PM. No respiratory distress. Instructions were given to the nurse to stop using the central line. Went to the patient's bedside. Mild soft tissue swelling on the right side of the neck, not present on the left. Patient was awake and alert and in no obvious respiratory distress. Mildly anxious, without agitation. Son present at her side, with her approval. Patient's floor nurse also present. Palpation revealed an area of induration along the angle of her right mandible. Suspicion at that time of possible parotitis. Basically no swelling or tenderness on the left. Some swelling and mild tenderness extending down into the supraclavicular fossa, but again primarily in the region of the angle of the right mandible. Oropharynx difficult to examine due to patient's tongue and gagging. Patient made nothing by mouth. 01/12/2017: I was contacted by patient's floor nurse early this morning, stating that swelling seemed to have increased somewhat, with patient complaining of being a bit short of breath. Rapid response was called, with patient subsequently noted not to be in any obvious respiratory distress, but again with what appeared to be some increased swelling on the right side of her neck compared to my examination late the evening of the second. Physical exam otherwise stable. Patient transferred to the intensive care unit. Remain nothing by mouth. I discussed the situation with the insect control aide radiologist, and decision was made to proceed with CT scan of the neck and chest with contrast. Reports noted, including mild deviation of the airway, although without specific airway compression. Reports discussed with interpreting radiologist. I went to the patient's bedside 4:25 AM in the intensive care unit, with patient 's ICU nurse, Ashley present, along with, once again, her son, who had been present earlier. My concern was for possible eventual airway compromise, given the progression of the area of soft tissue swelling in her neck. Intubation recommended to patient and son, with rationale for same discussed in layperson's terms. Son stated he preferred to contact his brother, who is a nurse, in [facility]. He made a number of attempts to contact both his brother and brother's but was only able to access their voicemail. I did discuss with him in darshana layperson's terms my concern for delaying intubation, possibly leading to an urgent or emergent situation for airway control, which may even include a cricothyrotomy or tracheostomy. Again, patient's son repeated that he wished to discuss the matter with his brother in [facility] prior to his mother undergoing intubation. Patient speaks and seems to understand limited [place]raini; son at bedside functioned nicely as freelance interpreter/translator. Per nursing staff, online [employer] does not have freelance interpreter/translator that can translate patient's language/dialect. Patient remained resting quietly, somewhat anxious, but no agitation. No evidence whatsoever of airway compromise, including no evidence of stridor, tachypnea, increased work of breathing, or "air hunger." No difficulty swallowing her saliva. Instructions were left with patient's intensive care unit nurse to contact me immediately should patient's son in [place] be contacted and I would happy to discuss the matter with him, and also certainly to contact me should patient develop any evidence of respiratory distress. 70 minutes critical care time spent in evaluation and management of patient, which included chart review, multiple discussions with nursing staff, multiple discussions with patient and son, discussions with on-call radiologist, and entering of multiple orders into the electronic health record.
[2017-01-12] MEDS: CARVEDILOL 12.5 MG TABLET PO SCH ×2 (10:34→21:25)
[2017-01-12] MEDS: DEXAMETHASONE SOD PHOSPHATE INJ 4 MG/1 ML VIAL IV SCH ×2 (12:30→21:25)
--- NOTE | 2017-01-12 18:03 | PDOC PROGRESS REPORT ---
Subjective Progress Note for:: 01/12/17 Subjective:: Patient experienced swelling and pain in the right side of her throat overnight. She was transferred to the intensive care unit for concern of possible airway compromise. Patient denies any difficulty breathing. She denies any difficulty swallowing. She has had no sick contacts. She is overall less confused but still makes occasional bizarre statements. Physical Exam Vital Signs: Temp Pulse Resp BP Pulse Ox 97.9 F 103 H 11 L 114/75 91 L 01/12/17 16:00 01/12/17 16:00 01/12/17 16:00 01/12/17 16:00 01/12/17 16:00 Intake & Output 01/11/17 01/12/17 01/13/17 06:59 06:59 06:59 Intake Total 623 758 2425 Output Total 750 100 600 Balance 21 440 640 Weight 82.3 kg 82.9 kg GENERAL: No acute distress HEENT: Conjunctiva clear, nonicteric, moist mucous membranes, erythema of posterior oropharynx, right submandibular adenopathy, no JVD, midline trachea. Posterior oropharynx patent RESPIRATORY: Clear to auscultation bilaterally, no wheezes, no rhonchi CARDIAC: Regular rate and rhythm, no murmurs/gallops/rubs ABDOMEN: Soft, nondistended, nontender, positive bowel sounds, no rebound, no guarding EXTREMETIES: No edema, cyanosis, clubbing NEUROLOGIC: Alert, oriented to person/place/time, CN's grossly intact, no focal deficits SKIN: No rash, wounds PSYCH: Normal mood, normal affect Results Laboratory Results: 01/12/17 04:45 01/12/17 04:45 01/12/17 01/12/17 04:45 04:45 WBC 10.4 RBC 3.88 Hgb 11.0 L Hct 32.1 L MCV 83 MCH 28.3 MCHC 34.3 RDW 13.3 Plt Count 197 Seg Neutrophils % 66.5 Lymphocytes % 21.1 Monocytes % 9.6 Eosinophils % 2.3 Basophils % 0.5 Absolute Neutrophils 6.9 Absolute Lymphocytes 2.2 Absolute Monocytes 1.0 Absolute Eosinophils 0.2 Absolute Basophils 0.1 Sodium 129.0 L Potassium 4.5 Chloride 89 L Carbon Dioxide 31 H Anion Gap 9 BUN 13 Creatinine 0.65 Est GFR ( Amer) > 60 Est GFR (Non-Af Amer) > 60 Glucose 112 H Calcium 8.9 01/09/17 01/09/17 06:00 09:57 Creatine Kinase 514 H NT-Pro-B Natriuret Pep 37 01/12/17 09:00 Group A Strep Rapid POSITIVE Impressions: Head CT 01/08/17 10:19 IMPRESSION: 1. Left maxillary sinusitis. Acute infection not excluded. 2. Suspect small vessel disease, chronic change otherwise. Chest X-Ray 01/11/17 09:38 IMPRESSION: NO ACUTE RADIOGRAPHIC FINDING IN THE CHEST. Chest CT 01/12/17 00:00 IMPRESSION: Small bibasilar scar. No acute cardiopulmonary findings. Soft Tissue Neck CT 01/12/17 00:00 IMPRESSION: 1. Moderate lymphadenopathy and soft tissue edema of the right paracentral neck and right supraclavicular space. Right subclavian central line. Differential diagnosis includes infectious, inflammatory, and neoplastic processes. Airway is patent, as queried. 2. Left maxillary sinusitis with air -fluid level. Assessment & Plan - Diagnosis (1) Streptococcal pharyngitis Is this a current diagnosis for this admission?: YesPlan: Start IV Rocephin. Start IV Decadron for swelling in the posterior oropharynx. (2) Encephalopathy Is this a current diagnosis for this admission?: YesPlan: Secondary to profound hyponatremia. Continue supportive care. Improving, but could potentially worsen with corticosteroid administration.. (3) Hyponatremia Is this a current diagnosis for this admission?: YesPlan: Symptomatic. Secondary to hydrochlorothiazide. Correcting gradually. Thyroid function studies show no evidence hypothyroid state (in fact TSH is low , but free T4 is normal). They should probably be repeated in a few weeks once patient is medically stable. Chest CT shows no evidence of chest mass. Echocardiogram shows diastolic dysfunction however patient is clinically compensated. (4) Left ventricular diastolic dysfunction Is this a current diagnosis for this admission?: YesPlan: Clinically compensated. Chest x-ray negative. Started Coreg 12.5 mg twice daily. (5) Hypertension Qualifiers: Hypertension type: essential hypertension Qualified Code(s): I10 - Essential (primary) hypertension Is this a current diagnosis for this admission?: YesPlan: Discontinued previous medications. Started Coreg 12.5 mg twice daily for this as well as diastolic dysfunction. HCTZ discontinued and noted as adverse drug reaction secondary to profound hyponatremia. (6) Rhabdomyolysis Qualifiers: Rhabdomyolysis type: non-traumatic Qualified Code(s): M62.82 - Rhabdomyolysis Is this a current diagnosis for this admission?: Yes (7) Constipation Is this a current diagnosis for this admission?: Yes - Time Time Spent with patient: 35 or more minutes Anticipated discharge: Home Within: within 72 hours
[2017-01-12] MEDS: KETOROLAC TROMETHAMINE INJ/PF 30 MG/1 ML SDV IV PRN (21:26)
[2017-01-13 05:06] LABS: ABSOLUTE LYMPHOCYTES (AUTO) 1.4 10^3/uL (0.5-4.7); ABSOLUTE MONOCYTES (AUTO) 0.4 10^3/uL (0.1-1.4); ABSOLUTE NEUT (AUTO) 9.7 10^3/uL (1.7-8.2); BASOPHILS % (AUTO) 0.2 % (0-2); EOSINOPHILS % (AUTO) 0.1 % (0-6); HEMOGLOBIN 11.1 g/dL (12.0-15.5); HGB HCT DIFFERENCE 0.3; LYMPHOCYTES % (AUTO) 12.1 % (13-45); MEAN CORPUSCULAR HGB CONC 33.6 g/dL (32.0-36.0); MEAN CORPUSCULAR VOLUME 83 fl (80-97); MONOCYTES % (AUTO) 3.2 % (3-13); RED BLOOD COUNT 3.97 10^6/uL (3.72-5.28); RED CELL DISTRIBUTION WIDTH 13.3 % (11.5-14.0); SEGMENTED NEUTROPHILS % (AUTO) 84.4 % (42-78); WHITE BLOOD COUNT 11.4 10^3/uL (4.0-10.5)
[2017-01-13 05:28] LABS: ANION GAP 11 (5-19); BLOOD UREA NITROGEN 14 mg/dL (7-20); CALCIUM 9.4 mg/dL (8.4-10.2); CARBON DIOXIDE 31 mmol/L (22-30); CHLORIDE 90 mmol/L (98-107); CREATININE RESULT 0.61 mg/dL (0.52-1.25); GLUCOSE 152 mg/dL (75-110); POTASSIUM 4.4 mmol/L (3.6-5.0); SODIUM 131.7 mmol/L (137-145)
[2017-01-13] MEDS: DEXAMETHASONE SOD PHOSPHATE INJ 4 MG/1 ML VIAL IV SCH (06:00)
[2017-01-13] MEDS: ENOXAPARIN SODIUM INJ 40 MG/0.4 ML DISP.SYRIN SUBCUT SCH (07:49)
--- NOTE | 2017-01-13 07:49 | PDOC PROGRESS REPORT ---
Subjective Progress Note for:: 01/13/17 Subjective:: According to patient's daughter this at the bedside patient has had no further confusion over the past 24 hours. Patient states that the pain in the right side of her neck is improved over the past 24 hours. She denies any difficulty breathing or swallowing. Patient denies fever, chills, headache, new focal weakness, chest pain, shortness of breath, abdominal pain, nausea, vomiting, diarrhea, constipation. Physical Exam Vital Signs: Temp Pulse Resp BP Pulse Ox 97.3 F 86 20 159/90 H 100 01/13/17 04:00 01/12/17 18:00 01/13/17 06:00 01/13/17 05:23 01/13/17 06:00 Intake & Output 01/12/17 01/13/17 01/14/17 06:59 06:59 06:59 Intake Total 540 1410 Output Total 100 1330 Balance 440 80 Weight 82.9 kg 84.7 kg GENERAL: No acute distress HEENT: Conjunctiva clear, nonicteric, moist mucous membranes, erythema of posterior oropharynx, right submandibular adenopathy, no JVD, midline trachea. Posterior oropharynx patent RESPIRATORY: Clear to auscultation bilaterally, no wheezes, no rhonchi CARDIAC: Regular rate and rhythm, no murmurs/gallops/rubs ABDOMEN: Soft, nondistended, nontender, positive bowel sounds, no rebound, no guarding EXTREMETIES: No edema, cyanosis, clubbing NEUROLOGIC: Alert, oriented to person/place/time, CN's grossly intact, no focal deficits SKIN: No rash, wounds PSYCH: Normal mood, normal affect Results Laboratory Results: 01/13/17 04:35 01/13/17 04:35 01/13/17 01/13/17 04:35 04:35 WBC 11.4 H RBC 3.97 Hgb 11.1 L Hct 33.0 L MCV 83 MCH 28.0 MCHC 33.6 RDW 13.3 Plt Count 200 Seg Neutrophils % 84.4 H Lymphocytes % 12.1 L Monocytes % 3.2 Eosinophils % 0.1 Basophils % 0.2 Absolute Neutrophils 9.7 H Absolute Lymphocytes 1.4 Absolute Monocytes 0.4 Absolute Eosinophils 0.0 Absolute Basophils 0.0 Sodium 131.7 L Potassium 4.4 Chloride 90 L Carbon Dioxide 31 H Anion Gap 11 BUN 14 Creatinine 0.61 Est GFR ( Amer) > 60 Est GFR (Non-Af Amer) > 60 Glucose 152 H Calcium 9.4 01/09/17 01/09/17 06:00 09:57 Creatine Kinase 514 H NT-Pro-B Natriuret Pep 37 Impressions: Head CT 01/08/17 10:19 IMPRESSION: 1. Left maxillary sinusitis. Acute infection not excluded. 2. Suspect small vessel disease, chronic change otherwise. Chest X-Ray 01/11/17 09:38 IMPRESSION: NO ACUTE RADIOGRAPHIC FINDING IN THE CHEST. Chest CT 01/12/17 00:00 IMPRESSION: Small bibasilar scar. No acute cardiopulmonary findings. Soft Tissue Neck CT 01/12/17 00:00 IMPRESSION: 1. Moderate lymphadenopathy and soft tissue edema of the right paracentral neck and right supraclavicular space. Right subclavian central line. Differential diagnosis includes infectious, inflammatory, and neoplastic processes. Airway is patent, as queried. 2. Left maxillary sinusitis with air -fluid level. Assessment & Plan - Diagnosis (1) Streptococcal pharyngitis Is this a current diagnosis for this admission?: YesPlan: Discontinue IV Rocephin. Discontinue Decadron. Start oral Augmentin. (2) Encephalopathy Is this a current diagnosis for this admission?: YesPlan: Resolved. Likely secondary to profound hyponatremia. (3) Hyponatremia Is this a current diagnosis for this admission?: YesPlan: Symptomatic. Secondary to hydrochlorothiazide. Correcting gradually. Thyroid function studies show no evidence hypothyroid state (in fact TSH is low , but free T4 is normal). They should probably be repeated in a few weeks once patient is medically stable. Chest CT shows no evidence of chest mass. Echocardiogram shows diastolic dysfunction however patient is clinically compensated. (4) Left ventricular diastolic dysfunction Is this a current diagnosis for this admission?: YesPlan: Clinically compensated. Chest x-ray negative. Coreg 25 mg twice daily. (5) Hypertension Qualifiers: Hypertension type: essential hypertension Qualified Code(s): I10 - Essential (primary) hypertension Is this a current diagnosis for this admission?: YesPlan: Discontinued previous medications. Increase Coreg to 25 mg twice daily for this as well as diastolic dysfunction. HCTZ discontinued and noted as adverse drug reaction secondary to profound hyponatremia. (6) Rhabdomyolysis Qualifiers: Rhabdomyolysis type: non-traumatic Qualified Code(s): M62.82 - Rhabdomyolysis Is this a current diagnosis for this admission?: Yes (7) Constipation Is this a current diagnosis for this admission?: Yes - Time Time Spent with patient: 35 or more minutes Anticipated discharge: Home Within: within 24 hours
[2017-01-13] MEDS ORDERED: CEFTRIAXONE 1 GM/D5W RTU 1 GM/50 ML RTUPB IV SCH (10:00)
[2017-01-13] MEDS: CARVEDILOL 12.5 MG TABLET PO SCH ×2 (11:09→21:44)
[2017-01-13] MEDS: AMOXICILLIN TR/POT CLAVULANATE 500-125 MG TAB PO SCH ×2 (14:40→21:44)
[2017-01-13] MEDS ORDERED: MAGNESIUM HYDROXIDE SUSP 30 ML UDCUP PO ONE (14:55)
[2017-01-13] MEDS: DOCUSATE SODIUM 100 MG CAPSULE PO SCH (17:42)
[2017-01-14 04:42] LABS: ABSOLUTE NEUT (AUTO) 12.2 10^3/uL (1.7-8.2); BASOPHILS % (AUTO) 0.2 % (0-2); EOSINOPHILS % (AUTO) 0.1 % (0-6); HEMATOCRIT 32.3 % (36.0-47.0); HEMOGLOBIN 10.6 g/dL (12.0-15.5); HGB HCT DIFFERENCE -0.5; MEAN CORPUSCULAR HEMOGLOBIN 27.7 pg (27.0-33.4); MEAN CORPUSCULAR HGB CONC 32.8 g/dL (32.0-36.0); MEAN CORPUSCULAR VOLUME 84 fl (80-97); MONOCYTES % (AUTO) 6.4 % (3-13); RED BLOOD COUNT 3.82 10^6/uL (3.72-5.28); RED CELL DISTRIBUTION WIDTH 13.2 % (11.5-14.0); SEGMENTED NEUTROPHILS % (AUTO) 80.3 % (42-78); WHITE BLOOD COUNT 15.1 10^3/uL (4.0-10.5)
[2017-01-14 05:00] LABS: ANION GAP 9 (5-19); BLOOD UREA NITROGEN 19 mg/dL (7-20); CALCIUM 9.2 mg/dL (8.4-10.2); CARBON DIOXIDE 32 mmol/L (22-30); CHLORIDE 89 mmol/L (98-107); CREATININE RESULT 0.57 mg/dL (0.52-1.25); GLUCOSE 121 mg/dL (75-110); POTASSIUM 4.6 mmol/L (3.6-5.0); SODIUM 129.6 mmol/L (137-145)
[2017-01-14] MEDS: AMOXICILLIN TR/POT CLAVULANATE 500-125 MG TAB PO SCH ×2 (05:04→14:56)
[2017-01-14] MEDS: ENOXAPARIN SODIUM INJ 40 MG/0.4 ML DISP.SYRIN SUBCUT SCH (10:08)
[2017-01-14] MEDS: DOCUSATE SODIUM 100 MG CAPSULE PO SCH (10:10)
[2017-01-14] MEDS: CARVEDILOL 12.5 MG TABLET PO SCH (10:10)
--- NOTE | 2017-01-14 13:54 | PDOC DISCHARGE SUMMARY ---
General - Admit/Disc Date/PCP Admission Date/Primary Care Provider: 01/08/17 12:27 [facility] Discharge Date: 01/14/17 - Discharge Diagnosis (1) Streptococcal pharyngitis Is this a current diagnosis for this admission?: Yes (2) Encephalopathy Is this a current diagnosis for this admission?: Yes (3) Hyponatremia Is this a current diagnosis for this admission?: Yes (4) Left ventricular diastolic dysfunction Is this a current diagnosis for this admission?: Yes (5) Hypertension Is this a current diagnosis for this admission?: Yes (6) Rhabdomyolysis Is this a current diagnosis for this admission?: Yes (7) Constipation Is this a current diagnosis for this admission?: Yes - Additional Information Resuscitation Status: Full Code Discharge Diet: Regular Discharge Activity: Activity As Tolerated Home Medications: Amox Tr/Potassium Clavulanate [Augmentin "500" Tablet] 1 tab PO Q8 #21 tablet 01/14/17 Carvedilol [Coreg 12.5 mg Tablet] 12.5 mg PO Q12 #60 tablet 01/14/17 History of Present Illness Patient complains of: generalised weakness and persistent vomiting History of Present Illness: DANIEL PALMA is a 61 year old female known hypertensive treated at the [facility] who emigrated from [facility] 1 year ago She presented to the ED with vomiting for the past week without abdominal pain She was diagnosed of severe hyponatremia with a serum Na of 111 She was subsequently admitted to the ICU under Hospitalist Service for further evaluation and care Hospital Course Hospital Course: Patient was admitted for profound hyponatremia associated with hydrochlorothiazide administration. Hydrochlorothiazide was discontinued and patient's hyponatremia gradually corrected. She had encephalopathy associated with profound hyponatremia and this also resolved with correction of hyponatremia. Patient will need to have chemistry panel repeated within one week at [facility]. With regard to hyponatremia patient's chest CT showed no mass. TSH was abnormally low but free T4 was normal. Thyroid functions should be repeated in outpatient clinic. Patient developed swelling in the right neck during hospitalization and sore throat. Strep screen was positive. CT scan of the neck showed no drainable fluid collection. Patient was initially started on IV Rocephin but has been transitioned to oral Augmentin and is making improvement. With regard to hypertension patient's previous antihypertensives were discontinued and patient was started on Coreg 12.5 mg twice daily. This will need further follow-up as an outpatient. Hydrochlorothiazide was noted as an adverse drug reaction resulting in profound hyponatremia. Physical Exam Vital Signs: Temp Pulse Resp BP Pulse Ox 97.9 F 91 20 101/65 100 01/14/17 11:21 01/14/17 11:21 01/14/17 11:21 01/14/17 11:21 01/14/17 11:21 Intake & Output 01/13/17 01/14/17 01/15/17 06:59 06:59 06:59 Intake Total 1410 734 Output Total 1330 Balance 80 734 Weight 84.7 kg 84.7 kg GENERAL: No acute distress HEENT: Conjunctiva clear, nonicteric, moist mucous membranes, no JVD, midline trachea. Greatly improved swelling in the right submandibular space RESPIRATORY: Clear to auscultation bilaterally, no wheezes, no rhonchi CARDIAC: Regular rate and rhythm, no murmurs/gallops/rubs ABDOMEN: Soft, nondistended, nontender, positive bowel sounds, no rebound, no guarding EXTREMETIES: No edema, cyanosis, clubbing NEUROLOGIC: Alert, oriented to person/place/time, CN's grossly intact, no focal deficits SKIN: No rash, wounds PSYCH: Normal mood, normal affect Results Laboratory Results: 01/14/17 04:26 01/14/17 04:26 01/14/17 01/14/17 04:26 04:26 WBC 15.1 H RBC 3.82 Hgb 10.6 L Hct 32.3 L MCV 84 MCH 27.7 MCHC 32.8 RDW 13.2 Plt Count 200 Seg Neutrophils % 80.3 H Lymphocytes % 13.0 Monocytes % 6.4 Eosinophils % 0.1 Basophils % 0.2 Absolute Neutrophils 12.2 H Absolute Lymphocytes 2.0 Absolute Monocytes 1.0 Absolute Eosinophils 0.0 Absolute Basophils 0.0 Sodium 129.6 L Potassium 4.6 Chloride 89 L Carbon Dioxide 32 H Anion Gap 9 BUN 19 Creatinine 0.57 Est GFR ( Amer) > 60 Est GFR (Non-Af Amer) > 60 Glucose 121 H Calcium 9.2 01/09/17 01/09/17 06:00 09:57 Creatine Kinase 514 H NT-Pro-B Natriuret Pep 37 01/08/17 01/12/17 10:30 09:00 Influenza A (Rapid) NEGATIVE Influenza B (Rapid) NEGATIVE Group A Strep Rapid POSITIVE 01/08/17 01/08/17 01/08/17 10:30 18:10 21:52 Sodium 111.1 L* 114.8 L* 117.5 L* 01/09/17 01/09/17 01/09/17 02:00 06:00 11:45 Sodium 119.3 L* 122.0 L 123.2 L 01/09/17 01/09/17 01/09/17 15:18 18:20 21:50 Sodium 122.9 L 123.6 L 123.2 L 01/10/17 01/10/17 01/11/17 03:00 14:18 04:30 Sodium 125.6 L 125.1 L 128.4 L 01/12/17 01/13/17 01/14/17 04:45 04:35 04:26 Sodium 129.0 L 131.7 L 129.6 L Impressions: Head CT 01/08/17 10:19 IMPRESSION: 1. Left maxillary sinusitis. Acute infection not excluded. 2. Suspect small vessel disease, chronic change otherwise. Chest X-Ray 01/11/17 09:38 IMPRESSION: NO ACUTE RADIOGRAPHIC FINDING IN THE CHEST. Chest CT 01/12/17 00:00 IMPRESSION: Small bibasilar scar. No acute cardiopulmonary findings. Soft Tissue Neck CT 01/12/17 00:00 IMPRESSION: 1. Moderate lymphadenopathy and soft tissue edema of the right paracentral neck and right supraclavicular space. Right subclavian central line. Differential diagnosis includes infectious, inflammatory, and neoplastic processes. Airway is patent, as queried. 2. Left maxillary sinusitis with air -fluid level. Echocardiogram: Normal ejection fraction, grade 2/4 diastolic dysfunction. Qualifiers PATEINT BEING DISCHARGED WITH ANY OF THE FOLLOWING DIAGNOSIS?: No Plan Time Spent: Less than 30 Minutes
[2017-01-14 14:48] VITALS: BP 148/86
== END 2017-01-14 15:21 | disposition home or self-care (01) | DRG 640 ==
LOC: ER 09:54 → EH 12:07 → UNDOADMIN 12:07 → EH 12:27 → ICU 14:20 → 4N 01-10 23:51 → ICU 01-12 02:51 → 5 01-13 15:50
PROVIDERS: ADMIT Emergency Medicine; ATTEND Emergency Medicine
PROC: 02HV33Z Insertion of Infusion Device into Superior Vena Cava, Percutaneous Approach (ICD-10-PCS; principal; 2017-01-08)
PROC: B548ZZA Ultrasonography of Superior Vena Cava, Guidance (ICD-10-PCS; 2017-01-08)
DX: E87.1 Hypo-osmolality and hyponatremia (principal); G93.40 Encephalopathy, unspecified; M62.82 Rhabdomyolysis; J02.0 Streptococcal pharyngitis; K59.00 Constipation, unspecified; R73.9 Hyperglycemia, unspecified; I10 Essential (primary) hypertension; Z79.899 Other long term (current) drug therapy
CPT/HCPCS: 36415; 70450; 70492; 71010; 71020; 71260; 80048; 80053; 80061; 81001; 82550; 82553; 83036; 83880; 83930; 83935; 84300; 84439; 84443; 84484; 85025; 87804; 87880; 93005; 93010; 93306; 94640; 99291; C1751; J0696; J1100; J1650; J1885; J1940; J2060; J2250; J3010; J3490; J7030; J7620; S0164

== ENCOUNTER → 2017-01-19 | Outpatient (CLI) | payer OTHER ==
[2017-01-19 18:40] LABS: ANION GAP 12 (5-19); BLOOD UREA NITROGEN 16 mg/dL (7-20); CALCIUM 9.5 mg/dL (8.4-10.2); CARBON DIOXIDE 31 mmol/L (22-30); CHLORIDE 100 mmol/L (98-107); CREATININE RESULT 0.86 mg/dL (0.52-1.25); GLUCOSE 124 mg/dL (75-110); POTASSIUM 4.3 mmol/L (3.6-5.0); SODIUM 143.1 mmol/L (137-145)
== END ==
LOC: CCC 17:07
DX: E87.1 Hypo-osmolality and hyponatremia (principal)
CPT/HCPCS: 36415; 80048